=== PATIENT | female | born 1945 | race Caucasian/White ===

== ENCOUNTER 2022-08-25 06:02 | Day surgery (SDC) | payer MEDICARE, OTHER ==
[2022-08-24 09:40] VITALS: BMI 23.8
[~2022-08-25 06:02] MED LIST: Fluorouracil 100 MG, Enoxaparin Sodium 25 MG, EPINEPHrine 0.3 MG in Ophthalmic Irrigati... IRR SCH
[2022-08-25] MEDS ORDERED: Cyclopentolate 1% Opth Drop 2 ML BOT ONE (06:22)
[2022-08-25] MEDS ORDERED: Phenylephrine 2.5% Ophth Soln 5 ML BOT ONE (06:22)
[2022-08-25] MEDS ORDERED: Midazolam HCl 2 mg/2 ml Vial ONE (06:40)
[2022-08-25] MEDS ORDERED: fentaNYL PF 100 MCG/2 ML SYRINGE ONE (06:41)
[2022-08-25] MEDS ORDERED: PROPOFOL 20 ML ONE (06:41)
[2022-08-25] MEDS ORDERED: CEFAZOLIN 1 GM VIAL ONE (07:16)
[2022-08-25] MEDS ORDERED: Bupivacaine 0.75% 10 ML VIAL ONE (07:16)
[2022-08-25] MEDS ORDERED: Lidocaine 1% PF 5 ML VIAL ONE (07:16)
[2022-08-25] MEDS ORDERED: Maxitrol 0.1% Opth Oint 3.5 GM TUBE ONE (07:16)
[2022-08-25] MEDS ORDERED: Triamcinolone 40 MG/ML VIAL ONE (07:16)
[2022-08-25] MEDS ORDERED: Enoxaparin Sodium 30 MG/0.3 ML SYRINGE ONE (07:16)
[2022-08-25] MEDS ORDERED: Lidocaine 4% PF 5 ML AMP ONE (07:16)
[2022-08-25] MEDS ORDERED: Indocyanine Green 25 MG/10 ML VIAL ONE (07:16)
== END 2022-08-25 08:35 | disposition home or self-care (01) ==
LOC: SDC 06:02
PROVIDERS: ATTEND Ophthalmology Retina Specialist
PROC: 08T53ZZ Resection of Left Vitreous, Percutaneous Approach (ICD-10-PCS; principal; 2022-08-25)
PROC: 08NF3ZZ Release Left Retina, Percutaneous Approach (ICD-10-PCS; 2022-08-25)
DX: H35.372 Puckering of macula, left eye (principal); Z79.83 Long term (current) use of bisphosphonates; Z98.41 Cataract extraction status, right eye; Z98.42 Cataract extraction status, left eye; Z96.1 Presence of intraocular lens
CPT/HCPCS: J0171; J0690; J1650; J2250; J2704; J3301; J3490; J9190